=== PATIENT | male | born 1995 ===

== ENCOUNTER 2017-08-07 15:29 | Emergency (ER) | payer MEDICAID, OTHER ==
[2017-08-07 15:41] VITALS: BP 156/94; PULSE 108; RESP 18; TEMP 99; O2SAT 100
--- NOTE | 2017-08-07 16:32 | C.PDOC ---
History Of Present Illness 22 y/o male presents to the ER complaining of subjective fever, cough, and sore throat which has been present for the past few days.Patient denies having abdominal pain, nausea, vomiting, and diarrhea. Denies sick contacts. Time Seen by Provider: 08/07/17 16:06 Chief Complaint (Nursing): Headache History Per: Patient History/Exam Limitations: no limitations Onset/Duration Of Symptoms: Days Current Symptoms Are (Timing): Still Present Severity: Moderate Past Medical History Reviewed: Historical Data, Nursing Documentation, Vital Signs Vital Signs: Last Vital Signs Temp 99 F 08/07/17 15:40 Pulse 108 H 08/07/17 15:40 Resp 18 08/07/17 15:40 BP 156/94 H 08/07/17 15:40 Pulse Ox 100 08/07/17 16:40 - Medical History PMH: No Chronic Diseases Surgical History: No Surg Hx Family History: States: No Known Family Hx - Social History Hx Alcohol Use: Yes Hx Substance Use: No - Immunization History Hx Tetanus Toxoid Vaccination: No Hx Influenza Vaccination: No Hx Pneumococcal Vaccination: No Review Of Systems Except As Marked, All Systems Reviewed And Found Negative. Constitutional: Positive for: Fever (subjective fever). Negative for: Chills ENT: Positive for: Throat Pain Respiratory: Positive for: Cough Gastrointestinal: Negative for: Nausea, Vomiting, Abdominal Pain, Diarrhea Physical Exam - Physical Exam Appears: Non-toxic, No Acute Distress Skin: Normal Color, Warm, Dry Head: Atraumatic, Normacephalic Eye(s): bilateral: Normal Inspection Ear(s): Bilateral: Normal Nose: Normal Oral Mucosa: Moist Throat: Erythema, No Exudate Neck: Supple Chest: Symmetrical Cardiovascular: Rhythm Regular Respiratory: Normal Breath Sounds, No Rales, No Rhonchi, No Wheezing Neurological/Psych: Oriented x3, Normal Speech, Normal Motor, Normal Sensation ED Course And Treatment O2 Sat by Pulse Oximetry: 100 (RA) Pulse Ox Interpretation: Normal Medical Decision Making Medical Decision Making: Plan: --Flu Swab --Rapid Strep --CXR --Tylenol PO flu pos cxr neg as read by me. well apperaing. tamiflu dosed. advise otupt fu Disposition - Disposition Referrals: [facility] [Outside] [facility] [Outside] [facility] Disposition: HOME/ ROUTINE Disposition Time: 16:40 Condition: STABLE Prescriptions: Oseltamivir Phosphate [Tamiflu] 75 mg PO BID #10 capsule Instructions: Flu, Adult (DC) Forms: [email or web address] [facility] ([place]) - Clinical Impression Clinical Impression: Influenza - Scribe Statement The provider has reviewed the documentation as recorded by the Scribe Calvin Santos Provider Attestation: All medical record entries made by the Scribe were at my direction and personally dictated by me. I have reviewed the chart and agree that the record accurately reflects my personal performance of the history, physical exam, medical decision making, and the department course for this patient. I have also personally directed, reviewed, and agree with the discharge instructions and disposition.
[2017-08-07 16:38] LABS: INFLUENZA A B POS FOR INFLUENZA B (NEGATIVE)
--- NOTE | 2017-08-07 17:39 | RAD ---
HISTORY: cough COMPARISON: No prior. TECHNIQUE: Chest PA and lateral FINDINGS: LUNGS: No active pulmonary disease. PLEURA: No significant pleural effusion identified. No pneumothorax apparent. CARDIOVASCULAR: Normal. OSSEOUS STRUCTURES: No significant abnormalities. VISUALIZED UPPER ABDOMEN: Normal. OTHER FINDINGS: None. IMPRESSION: No active disease.
== END 2017-08-07 16:51 | disposition home or self-care (01) ==
LOC: C.ER 15:29
DX: J11.1 Influenza due to unidentified influenza virus with other respiratory manifestations (principal)

== ENCOUNTER 2017-11-12 19:57 | Emergency (ER) | payer MEDICAID | END 2017-11-12 20:01 | disposition left against medical advice (07) | LOC: C.ER 19:57 | DX: Z02.89 Encounter for other administrative examinations (principal); R10.9 Unspecified abdominal pain ==